=== PATIENT | female | born 1985 | race Caucasian/White ===

== ENCOUNTER 2017-11-05 18:05 | Emergency (ER) | payer BC, OTHER ==
[2017-11-05] MEDS ORDERED: Fluorescein Opthalmic Strip ONE (18:39)
[2017-11-05] MEDS ORDERED: Proparacaine 0.5% Opth 15 ML BOT ONE (18:39)
[2017-11-05] MEDS ORDERED: Adacel (T-DAP) 0.5 ML VIAL ONE (19:03)
[2017-11-05] MEDS ORDERED: HYDROcodone/Acetaminophen 5/325 mg Tablet ONE (19:31)
== END 2017-11-05 19:39 | disposition home or self-care (01) ==
LOC: SCSER 18:05
DX: S05.01XA Injury of conjunctiva and corneal abrasion without foreign body, right eye, initial encounter (principal); W22.8XXA Striking against or struck by other objects, initial encounter
CPT/HCPCS: 90471; 90715

== ENCOUNTER 2018-10-06 14:27 | Emergency (ER) | payer OTHER ==
[2018-10-06 15:31] LABS: #Eosinphils 0.1 thou/uL (0.0-0.7); #Lymphocytes 0.6 thou/uL (1.20-3.40); #Monocytes 0.7 thou/uL (0.11-0.59); #Neutrophils 8.4 thou/uL (1.40-6.50); %Basophils 0.2 % (0.0-1.0); %Eosinophils 0.9 % (0.0-10.0); %Lymphocytes 6.2 % (21.0-51.0); %Monocytes 6.8 % (0.0-10.0); %Neutrophils 85.9 % (42.0-75.0); Hemoglobin 12.6 g/dL (12.0-16.0); Mean Corpuscular HGB CONC 34.5 g/dL (32.0-36.0); Mean Corpuscular Hemoglobin 32.1 pg (27.0-31.0); Mean Corpuscular Volume 93.2 fL (78.0-98.0); Mean Platelet Volume 7.8 fL (7.4-10.4); Platelet Count 196 thou/uL (130-400); RBC Distribution Width 11.4 % (11.5-14.5); Red Blood Cell (RBC) Count 3.93 mill/uL (4.20-5.40); White Blood Cell (WBC) Count 9.7 thou/uL (4.8-10.8)
[2018-10-06 15:56] LABS: ALT (SGPT) 19 U/L (8-55); AST (SGOT) 26 U/L (5-34); Albumin 3.5 g/dL (3.5-5.0); Alkaline Phosphatase 37 U/L (40-150); Anion Gap 14 mmol/L (10-20); BUN (Urea Nitrogen) 15 mg/dL (7.0-18.7); Bilirubin, Total 0.6 mg/dL (0.2-1.2); Calc. Creatinine Clearance 0 mL/min (70-130); Calcium 7.9 mg/dL (7.8-10.44); Carbon Dioxide 21 mmol/L (22-29); Chloride 105 mmol/L (98-107); Estimated GFR-MDRD Greater than 90; Globulin 2.3 g/dL (2.4-3.5); Glucose 85 mg/dL (70-105); Potassium 3.7 mmol/L (3.5-5.1); Protein, Total 5.8 g/dL (6.0-8.3); Sodium 136 mmol/L (136-145)
[2018-10-06 16:00] LABS: Bilirubin Negative (Negative); Blood, Urine Negative (Negative); Clarity CLEAR (Clear); Glucose, Urine (Dipstick) Negative (Negative); Leukocyte Negative (Negative); Nitrite Negative (Negative); Protein, Urine (Dipstick) Negative (Neg-Trace); Specific Gravity, Urine 1.009 (1.002-1.036); Urobilinogen 0.2 mg/dL (0.2-1.0)
--- NOTE | 2018-10-06 17:31 | RAD ---
AP PELVIS ONE VIEW: HISTORY: A 33-year-old female with a history of malaise, throbbing leg pain, and fever. FINDINGS: No fracture, dislocation, or other significant osseous abnormality involving the pelvis. IMPRESSION: Unremarkable anterior-posterior pelvis. POS: STEPHEN
--- NOTE | 2018-10-06 17:46 | RAD ---
LUMBAR SPINE THREE VIEWS: HISTORY: A 33-year-old female with a history of general malaise, back pain, and leg pain. FINDINGS: The disk spaces are adequately preserved. No fracture, dislocation, or malalignment. IMPRESSION: Unremarkable lumbar spine. POS: STEPHEN
== END 2018-10-06 17:50 | disposition home or self-care (01) ==
LOC: ERS 14:27
DX: R50.9 Fever, unspecified (principal); M79.10 Myalgia, unspecified site
CPT/HCPCS: 36415; 72100; 72170; 80053; 81003; 85025; 87804; 96360; 96361

== ENCOUNTER 2021-04-11 08:46 | Outpatient (CLI) | payer OTHER | END 2021-04-11 08:47 | disposition home or self-care (01) | LOC: SCSRAD 08:46 | PROVIDERS: ATTEND Internal Medicine Rheumatology | DX: R06.02 Shortness of breath (principal) | CPT/HCPCS: 71046 ==